=== PATIENT | female | born 1985 ===

== ENCOUNTER 2019-02-06 17:54 | Emergency (ER) | payer MEDICAID ==
[2019-02-06 19:54] LABS: BASO # 0.1 K/uL (0.0-0.2); BASO % 1.1 % (0.0-2.0); EOS # 0.4 K/uL (0.0-0.7); EOS % 4.8 % (0.0-4.0); HEMOGLOBIN 12.9 g/dL (12.0-16.0); LYMPH # 1.9 K/uL (1.0-4.3); LYMPH % 21.4 % (20.0-40.0); MEAN CELL VOLUME 90.8 fl (81.0-99.0); MEAN CORPUSCULAR HEMOGLOBIN 31.1 pg (27.0-31.0); MEAN CORPUSCULAR HGB CONC 34.3 g/dL (33.0-37.0); MEAN PLATELET VOLUME 8.7 fl (7.2-11.7); MONO # 1.1 K/uL (0.0-0.8); MONO % 12.1 % (0.0-10.0); NEUT # 5.4 K/uL (1.8-7.0); NEUT % 60.6 % (50.0-75.0); NRBC % 0.1 % (0.0-0.0); RBC 4.14 Mil/uL (3.80-5.20); RED CELL DISTRIBUTION WIDTH 13.5 % (11.5-14.5); WHITE BLOOD COUNT 8.9 K/uL (4.8-10.8)
[2019-02-06 19:55] LABS: ALB/GLOB RATIO 1.4 (1.0-2.1); ALT/SGPT 25 U/L (9-52); AST/SGOT 40 U/L (14-36); BLOOD UREA NITROGEN 9 mg/dl (7-17); CALCIUM 8.7 mg/dL (8.4-10.2); GFR NON-AFRICAN AMERICAN > 60
--- NOTE | 2019-02-06 20:02 | CP.PCM.CON ---
History of Present Illness - History of Present Illness History of Present Illness: Plastic Surgery Consult for Dr. Ledbetter Reason for consult: suspected seroma 33 F with PMH that includes s/p , s/p liposuction, s/p abdominoplasty presents to [facility] for swelling and mild pain of abdomen. Patient seen and evaluated in the ED. Patient had abdominoplasty and liposuction the [facility] on 01/12. One week ago she had her drain removed from surgery. Since then, she has developed swelling, mild distention, and mild pain. She states that it feels like there is fluid under her skin. She also reports serosangui nous drainage from drain site and incision. Denies fever/chills, cp, SOB, palpitations, nausea/vomiting, diarrhea, constipation, numbness/tingling, urinary symptoms. PMH: denies PSH: s/p , s/p liposuction, s/p abdominoplasty ALL: NKDA Social: smokes daily even after procedures Review of Systems - Review of Systems All systems: reviewed and no additional remarkable complaints except (as per HPI) Past Patient History - Past Social History Smoking Status: Light Smoker < 10 Cigarettes Daily - PSYCHIATRIC Hx Substance Use: No - SURGICAL HISTORY Other/Comment: tummy tuck /liposuction on 01/12/[address] - ANESTHESIA Hx Anesthesia: Yes Hx Anesthesia Reactions: No Meds Allergies/Adverse Reactions: Allergies Allergy/AdvReac Type Severity Reaction Status Date / Time No Known Allergies Allergy Verified 02/06/19 18:08 Physical Exam - Constitutional Appears: Well, Non-toxic, No Acute Distress - Head Exam Head Exam: ATRAUMATIC, NORMOCEPHALIC - Eye Exam Eye Exam: EOMI, Normal appearance Pupil Exam: PERRL - ENT Exam ENT Exam: Mucous Membranes Moist - Neck Exam Neck exam: Positive for: Full Rom - Respiratory Exam Respiratory Exam: NORMAL BREATHING PATTERN - Cardiovascular Exam Cardiovascular Exam: REGULAR RHYTHM - GI/Abdominal Exam GI & Abdominal Exam: Normal Bowel Sounds, Soft, Tenderness (incisional). absent: Distended, Firm, Guarding, Rebound Additional comments: low suprapubic incision, small liposuction incision under breasts b/l and one on low back +fluid wave noted on abdomen, seroma is present no drainge noted surgical sites clean dry and intact no erythema or warmth - Extremities Exam Extremities exam: Positive for: normal capillary refill, pedal pulses present - Back Exam Back exam: absent: CVA tenderness (L), CVA tenderness (R) - Neurological Exam Neurological exam: Alert, CN II-XII Intact, Normal Gait, Oriented x3 - Psychiatric Exam Psychiatric exam: Normal Affect, Normal Mood - Skin Skin Exam: Dry, Warm Results - Vital Signs Recent Vital Signs: Last Vital Signs Temp 97.9 F 02/06/19 18:08 Pulse 100 H 02/06/19 18:08 Resp 18 02/06/19 18:08 BP 123/81 02/06/19 18:08 Pulse Ox 100 02/06/19 18:08 - Labs Result Diagrams: 02/06/19 19:42 02/06/19 19:42 Labs: Laboratory Results - last 24 hr 02/06/19 02/06/19 19:42 19:42 WBC 8.9 RBC 4.14 Hgb 12.9 Hct 37.6 MCV 90.8 MCH 31.1 H MCHC 34.3 RDW 13.5 Plt Count 310 MPV 8.7 Neut % (Auto) 60.6 Lymph % (Auto) 21.4 Tate % (Auto) 12.1 H Eos % (Auto) 4.8 H Baso % (Auto) 1.1 Neut # (Auto) 5.4 Lymph # (Auto) 1.9 Tate # (Auto) 1.1 H Eos # (Auto) 0.4 Baso # (Auto) 0.1 Sodium 137 Potassium 3.9 Chloride 104 Carbon Dioxide 27 Anion Gap 10 BUN 9 Creatinine 0.5 L Est GFR ( Amer) > 60 Est GFR (Non-Af Amer) > 60 Random Glucose 85 Calcium 8.7 Total Bilirubin 0.6 AST 40 H ALT 25 Alkaline Phosphatase 91 Total Protein 6.9 Albumin 4.0 Globulin 2.9 Albumin/Globulin Ratio 1.4 Assessment & Plan - Assessment and Plan (Free Text) Assessment: 33 F s/p liposuction and abdominoplasty present with seroma Plan: -Labs are normal and afebrile -No drainage noted -does not appear to be infected -patient may follow up as outpatient this week with Dr. Ledbetter for drainage of seroma and subsequent management -Patient may choose to follow up with any other plastic surgeon if she pleases -Discussed with Dr. Anatoly Liao PGY2 - Date & Time Date: 02/06/19 Time: 19:30
--- NOTE | 2019-02-06 20:12 | ED PDOC ---
HPI: Wound Care - HPI Time Seen by Provider: 02/06/19 18:17 Chief Complaint (Nursing): Wound Check Chief Complaint (Provider): Wound check History Per: Patient Exam Limitations: no limitations Current Symptoms Are (Timing): Still Present Additional Complaint(s): 33 y/o female presents to the ER for evaluation of surgical wound swelling. On January 12, patient underwent an abdominoplasty in the [facility] [place]. At the time of discharge, she had a drain in the right lateral part of her surgical wound. [place] came [place] to the [place], she continued to have post op care with an abdominal masseuse that was arranged by the surgeon in the [place]. 8 days ago, the masseuse removed the drain and the patient reports for about 3 days after that, there was clear yellow fluid drained from the opening which then stopped. However, patient feels there is persistent fluid within her wound that is increasing and causing swelling and some areas where the wound is opening. She denies fever, redness, nausea, vomiting, diarrhea, constipation, or urinary symptoms. She was told by the surgeon to come to the ER for evaluation. PMD: Richar Loe Past Medical History Reviewed: Historical Data, Nursing Documentation, Vital Signs Vital Signs: Last Vital Signs Temp 97.9 F 02/06/19 18:08 Pulse 100 H 02/06/19 18:08 Resp 18 02/06/19 18:08 BP 123/81 02/06/19 18:08 Pulse Ox 100 02/06/19 18:08 Primary Care Provider: Richar Wilkins - Medical History PMH: No Chronic Diseases - Surgical History Surgical History: Other surgeries: abdominoplasty - Family History Family History: States: No Known Family Hx - Social History Current smoker - smoking cessation education provided: Yes - Allergies Allergies/Adverse Reactions: Allergies Allergy/AdvReac Type Severity Reaction Status Date / Time No Known Allergies Allergy Verified 02/06/19 18:08 Review of Systems ROS Statement: Except As Marked, All Systems Reviewed And Found Negative (as per HPI) Constitutional: Negative for: Fever Gastrointestinal: Negative for: Nausea, Vomiting, Diarrhea, Constipation Genitourinary Female: Negative for: Dysuria, Hematuria Skin: Positive for: Other (Surgical wound swelling; (-) redness) Physical Exam - Reviewed Nursing Documentation Reviewed: Yes Vital Signs Reviewed: Yes - Physical Exam Appears: Positive for: Well, No Acute Distress Gastrointestinal/Abdominal: Positive for: Soft, Tenderness (mild tenderness to palpation of the lower abdomen), Other (large surgical wound at the lower fold of the abdomen with 1cm opening in the right lateral end of the incision. (-) purulence, (-) erythema surrounding the wound. Small areas of wound opening along the wound without any discharge. Wound of the umbilicus with black eschar deep to the wound, well demarcated with no erythema. Questionable fluid wave of the lower abdomen. ). Negative for: Mass, Guarding, Rebound - Laboratory Results Result Diagrams: 02/06/19 19:42 02/06/19 19:42 Lab Results: Total Bilirubin 0.6 mg/dl (0.2-1.3) 02/06/19 19:42 AST 40 U/L (14-36) H 02/06/19 19:42 ALT 25 U/L (9-52) 02/06/19 19:42 Alkaline Phosphatase 91 U/L (38-126) 02/06/19 19:42 Total Protein 6.9 G/DL (6.3-8.2) 02/06/19 19:42 Albumin 4.0 g/dL (3.5-5.0) 02/06/19 19:42 Globulin 2.9 gm/dL (2.2-3.9) 02/06/19 19:42 Albumin/Globulin Ratio 1.4 (1.0-2.1) 02/06/19 19:42 - ECG O2 Sat by Pulse Oximetry: 100 (RA) Pulse Ox Interpretation: Normal Medical Decision Making Medical Decision Making: Initial Impression: post op seroma Initial Plan: --CMP --CBC --Blood culture 18:[address] Ledbetter who recommends labs. Patient be evaluated by surgical appliances salesperson. 20:03 Labs are unremarkable. residential carpet installer evaluated patient in the ER. Labs are negative. Patient is stable for discharge and will be evaluated in Dr. Ledbetter's office. Scribe Attestation: Documented by Maurice Velasquez acting as a scribe for Aishwarya Venegas MD. Provider Scribe Attestation: All medical record entries made by the Scribe were at my direction and personally dictated by me. I have reviewed the chart and agree that the record accurately reflects my personal performance of the history, physical exam, medical decision making, and the department course for this patient. I have also personally directed, reviewed, and agree with the discharge instructions and disposition. Disposition - Clinical Impression Clinical Impression: Seroma - Disposition Referrals: John Ledbetter MD [Medical Doctor] - 02/08/19 Disposition: Routine/Home Disposition Time: 20:00 Condition: STABLE Additional Instructions: THERE ARE NO SIGNS OF INFECTION ON YOUR BLOODWORK OR EXAM PLEASE FOLLOWUP WITH PLASTIC SURGERY FOR FURTHER MANAGEMENT. Instructions: Surgical Wound (DC) Forms: [employer] ([place])
[2019-02-06 21:31] VITALS: BP 134/76; PULSE 88; RESP 16; TEMP 98
[2019-02-08 10:03] VITALS: O2SAT 100
== END 2019-02-06 21:30 | disposition home or self-care (01) ==
LOC: H.ER 17:54
DX: L76.34 Postprocedural seroma of skin and subcutaneous tissue following other procedure (principal)